=== PATIENT | female | born 1970 ===

== ENCOUNTER 2020-09-06 02:50 | Inpatient (IN) | payer MEDICAID, OTHER ==
[~2020-09-06] VITALS: Ht 170.2 cm; Wt 52.3 kg
[2020-09-06] MEDS ORDERED: RISP2TAB80 PO (03:27)
[2020-09-06] MEDS ORDERED: DIVA500T4 PO (03:27)
[2020-09-06] MEDS ORDERED: DOCUSATE 100 MG CAPSULE PO PRN (03:30)
[2020-09-06] MEDS ORDERED: PLEASE ENTER HEIGHT AND WEIGHT MC SCH (04:00)
[2020-09-06 05:00] VITALS: BP 103/70
[2020-09-06 07:36] VITALS: BP 97/68
[2020-09-06 08:26] LABS: CHOL/HDL RATIO 2.4; LDL/HDL RATIO 1.2 (0.5-3.0)
[2020-09-06] MEDS: RISPERIDONE 2 MG TABLET PO SCH ×2 (08:37→20:23)
[2020-09-06] MEDS: DIVALPROEX 500 MG TAB.ER.24H PO SCH ×2 (08:39→21:00)
[2020-09-06] MEDS ORDERED: NICOTINE 14MG/24 HR PATCH.TD24 TD ONE (09:00)
[2020-09-06 10:34] LABS: FREE T4 (FREE THYROXINE) 1.25 ng/dL (0.76-1.46)
[2020-09-06 19:37] VITALS: BP 100/70
[2020-09-07 07:25] VITALS: BP 96/62
[2020-09-07] MEDS: RISPERIDONE 2 MG TABLET PO SCH (08:32)
[2020-09-07] MEDS: DIVALPROEX 500 MG TAB.ER.24H PO SCH (08:33)
[2020-09-07] MEDS ORDERED: NICOTINE 14MG/24 HR PATCH.TD24 ONE (09:29)
[2020-09-07] MEDS: NICOTINE 14MG/24 HR PATCH.TD24 TD SCH (09:41)
[2020-09-07] MEDS: ACETAMINOPHEN 325 MG TABLET PO PRN (16:34)
[2020-09-07 19:17] VITALS: BP 99/69
[2020-09-08 07:46] VITALS: BP 92/64
[2020-09-08] MEDS ORDERED: NICOTINE 14MG/24 HR PATCH.TD24 TD SCH (09:30)
[2020-09-08] MEDS: NICOTINE 14MG/24 HR PATCH.TD24 TD SCH (09:38)
[2020-09-08] MEDS: ACETAMINOPHEN 325 MG TABLET PO PRN (15:59)
[2020-09-08 19:39] VITALS: BP 107/75
[2020-09-08] MEDS: CALCIUM CARBONATE 500 MG TAB.CHEW PO PRN (19:54)
[2020-09-09 07:48] VITALS: BP 101/68
[2020-09-09] MEDS: NICOTINE 14MG/24 HR PATCH.TD24 TD SCH (09:04)
[2020-09-09] MEDS: ACETAMINOPHEN 325 MG TABLET PO PRN ×2 (09:56→20:20)
[2020-09-09] MEDS ORDERED: TRAZ300T2 PO (14:43)
[2020-09-09] MEDS ORDERED: OMEP-110 PO (14:43)
[2020-09-09] MEDS ORDERED: PRAZ2CAP2 PO ×2 (14:43→16:21)
[2020-09-09] MEDS ORDERED: TOPI50TA8 PO ×2 (14:43→16:21)
[2020-09-09] MEDS ORDERED: METF500S5 PO (14:43)
[2020-09-09] MEDS: CALCIUM CARBONATE 500 MG TAB.CHEW PO PRN ×2 (15:30→20:20)
[2020-09-09] MEDS ORDERED: CHLO25TA4 PO (16:21)
[2020-09-09] MEDS ORDERED: NICO-486 TD (16:21)
[2020-09-09 19:34] VITALS: BP 111/73
[2020-09-10 07:28] VITALS: BP 94/64
[2020-09-10] MEDS: ACETAMINOPHEN 325 MG TABLET PO PRN (09:24)
[2020-09-10] MEDS: NICOTINE 14MG/24 HR PATCH.TD24 TD SCH (09:24)
== END 2020-09-10 10:25 | disposition home or self-care (01) | DRG 776 ==
LOC: 3E 03:43
PROVIDERS: ADMIT Psychiatry & Neurology Psychosomatic Medicine; ATTEND Psychiatry & Neurology Psychosomatic Medicine
DX: F15.259 Other stimulant dependence with stimulant-induced psychotic disorder, unspecified (principal); F17.200 Nicotine dependence, unspecified, uncomplicated; Z72.89 Other problems related to lifestyle; Z88.0 Allergy status to penicillin
CPT/HCPCS: 36415; 71045; 80061; 82607; 84439; 84443; 93005; Q0161